=== PATIENT | male | born 1985 | race Two or more races ===

== ENCOUNTER 2021-07-06 23:34 | Emergency (ER) | payer MEDICAID ==
[~2021-07-06] VITALS: Ht 180.3 cm; Wt 158.8 kg
[2021-07-07] MEDS ORDERED: cloNIDine HCL 0.1 MG TAB PO ONE (00:15)
[2021-07-07 01:08] LABS: Basophils # (auto) 0.2 10 ^3/uL (0-0.2); Eosinophils # (auto) 0.2 10 ^3/uL (0-0.8); Eosinophils % (auto) 1.8 % (0.0-7.0); Hematocrit 49.7 % (41.0-53.0); Hemoglobin 16.7 g/dL (13.5-17.5); Lymphocytes # (auto) 2.8 10 ^3/uL (0.4-5.4); Lymphocytes % (auto) 24.7 % (10.0-50.0); Mean Corpuscular Hemoglobin 30.2 pg (28.0-32.0); Mean Corpuscular Hgb Conc. 33.7 g/dL (32.0-36.0); Mean Corpuscular Volume 89.7 fL (80.0-100.0); Monocytes # (auto) 1.3 10 ^3/uL (0-1.3); Monocytes % (auto) 11.2 % (0.0-12.0); Neutrophils # (auto) 6.8 10 ^3/uL (1.6-8.6); Neutrophils % (auto) 60.3 % (37.0-80.0); Red Blood Cells 5.55 10^6/uL (4.5-5.90); Red Cell Distribution Width 14.5 % (11.8-14.3); White Blood Cell 11.4 10^3/uL (4.4-10.8)
[2021-07-07 01:23] LABS: INR 1.07 (0.9-1.15); Partial Thromboplastin Time 30.2 sec (23.6-33.0)
[2021-07-07 02:19] VITALS: BP 171/64
== END 2021-07-07 02:53 | disposition home or self-care (01) ==
LOC: ER 23:34
DX: S81.811A Laceration without foreign body, right lower leg, initial encounter (principal); I83.91 Asymptomatic varicose veins of right lower extremity; X58.XXXA Exposure to other specified factors, initial encounter; Y93.89 Activity, other specified; Y92.89 Other specified places as the place of occurrence of the external cause; Y99.8 Other external cause status
CPT/HCPCS: 12001; 36415; 85025; 85610; 85730